=== PATIENT | male | born 1955 | race Hispanic/Latino ===

== ENCOUNTER 2017-04-17 08:17 | Inpatient (IN) | payer OTHER ==
[2017-04-17 08:18] VITALS: BMI 22.0
[2017-04-17] MEDS ORDERED: Sodium Chloride 0.9% 500 ML IV ONE ×2 (08:43→11:31)
[2017-04-17 09:02] LABS: BASO % 0.6 % (0.0-2.0); EOS # 0.1 K/uL (0.0-0.7); EOS % 2.1 % (0.0-4.0); HEMATOCRIT 41.2 % (35.0-51.0); LYMPH # 1.1 K/uL (1.0-4.3); LYMPH % 20.6 % (20.0-40.0); MEAN CELL VOLUME 90.5 fL (80.0-94.0); MEAN CORPUSCULAR HEMOGLOBIN 30.3 pg (27.0-31.0); MEAN CORPUSCULAR HGB CONC 33.4 g/dL (33.0-37.0); MEAN PLATELET VOLUME 9.1 fL (7.2-11.7); MONO # 0.5 K/uL (0.0-0.8); MONO % 9.9 % (0.0-10.0); RED CELL DISTRIBUTION WIDTH 13.5 % (11.5-14.5); WHITE BLOOD COUNT 5.5 K/uL (4.8-10.8)
[2017-04-17 09:13] LABS: ALKALINE PHOSPHATASE 53 U/L (38-126); ALT/SGPT 49 U/L (21-72); AST/SGOT 37 U/L (17-59); BILIRUBIN,TOTAL 1.6 mg/dL (0.2-1.3); BLOOD UREA NITROGEN 12 mg/dL (9-20); CALCIUM 8.3 mg/dl (8.6-10.4); CARBON DIOXIDE 31 mmol/L (22-30); CHLORIDE 105 mmol/L (98-107); GFR AFRICAN-AMERICAN > 60; GLUCOSE,RANDOM 111 mg/dL (75-110); POTASSIUM 4.1 mmol/L (3.6-5.2); SODIUM 139 mmol/L (132-148)
[2017-04-17 09:16] LABS: ALB/GLOB RATIO 1.6 (1.0-2.1)
--- NOTE | 2017-04-17 10:02 | C.PDOC ---
History Of Present Illness 62 year old male, with PMHx of HTN, MO in 2014 with 2 stents placed, presents to ED for evaluation after a syncopal episode today. Pt states that he was getting his stress test and echocardiogram done today as per Dr. Alfredo, when he passed out after an IV line was placed. Pt states that he felt slightly dizzy before the syncopal episode but feels better now. Pt is asymptomatic at this time. Notes that he took his Aspirin today. No chest pain, shortness of breath, or dizziness. Time Seen by Provider: 04/17/17 08:28 Chief Complaint (Nursing): Syncope History Per: Patient History/Exam Limitations: no limitations Current Symptoms Are (Timing): Still Present Recent travel outside of the [place]: No Additional History Per: Patient Past Medical History Reviewed: Historical Data, Nursing Documentation, Vital Signs Vital Signs: Last Vital Signs Temp 97.8 F 04/17/17 08:17 Pulse 58 L 04/17/17 08:17 Resp 18 04/17/17 08:17 BP 93/63 L 04/17/17 08:17 Pulse Ox 95 04/17/17 10:07 - Medical History PMH: HTN, Hypercholesterolemia Denies: Chronic Kidney Disease Family History: States: Unknown Family Hx - Social History Hx Alcohol Use: No Hx Substance Use: No - Immunization History Hx Tetanus Toxoid Vaccination: No Hx Influenza Vaccination: No Hx Pneumococcal Vaccination: No Review Of Systems Except As Marked, All Systems Reviewed And Found Negative. Constitutional: Negative for: Fever, Chills Cardiovascular: Negative for: Chest Pain, Palpitations Respiratory: Negative for: Cough, Shortness of Breath Gastrointestinal: Negative for: Nausea, Vomiting, Abdominal Pain Neurological: Negative for: Weakness, Numbness, Headache, Dizziness Physical Exam - Physical Exam Appears: Non-toxic, No Acute Distress, Other (anxious) Skin: Normal Color, Warm, Dry Head: Atraumatic, Normacephalic Eye(s): bilateral: Normal Inspection Oral Mucosa: Moist Chest: Symmetrical Cardiovascular: Rhythm Regular, No Murmur, Other (hypotensive) Respiratory: Normal Breath Sounds, No Rales, No Rhonchi, No Wheezing Gastrointestinal/Abdominal: Soft, No Tenderness Extremity: Normal ROM Neurological/Psych: Oriented x3, Normal Speech ED Course And Treatment - Laboratory Results Result Diagrams: 04/17/17 08:57 04/17/17 08:57 O2 Sat by Pulse Oximetry: 95 Pulse Ox Interpretation: Normal Medical Decision Making Medical Decision Making: Blood work, EKG ordered and reviewed. Pt was given IV fluids. Case discussed with Dr. Alfredo Case discussed with Dr. Asencio Disposition - Disposition Forms: [facility] (Samoan) - Scribe Statement The provider has reviewed the documentation as recorded by the Scribe Wendie Haywood All medical record entries made by the Scribe were at my direction and personally dictated by me. I have reviewed the chart and agree that the record accurately reflects my personal performance of the history, physical exam, medical decision making, and the department course for this patient. I have also personally directed, reviewed, and agree with the discharge instructions and disposition.
--- NOTE | 2017-04-17 10:04 | C.PDOC ---
Time Seen by Provider: 04/17/17 08:28 Chief Complaint (Nursing): Syncope Past Medical History Vital Signs: Last Vital Signs Temp 97.8 F 04/17/17 08:17 Pulse 58 L 04/17/17 08:17 Resp 18 04/17/17 08:17 BP 93/63 L 04/17/17 08:17 Pulse Ox 95 04/17/17 08:17 - Medical History PMH: HTN, Hypercholesterolemia Denies: Chronic Kidney Disease Family History: States: Unknown Family Hx - Social History Hx Alcohol Use: No Hx Substance Use: No - Immunization History Hx Tetanus Toxoid Vaccination: No Hx Influenza Vaccination: No Hx Pneumococcal Vaccination: No ED Course And Treatment - Laboratory Results Result Diagrams: 04/17/17 08:57 04/17/17 08:57 O2 Sat by Pulse Oximetry: 95 Disposition - Disposition
--- NOTE | 2017-04-17 10:08 | C.PDOC ---
Time Seen by Provider: 04/17/17 08:28 Chief Complaint (Nursing): Syncope Past Medical History Vital Signs: Last Vital Signs Temp 97.8 F 04/17/17 08:17 Pulse 58 L 04/17/17 08:17 Resp 18 04/17/17 08:17 BP 93/63 L 04/17/17 08:17 Pulse Ox 95 04/17/17 10:04 - Medical History PMH: HTN, Hypercholesterolemia Denies: Chronic Kidney Disease Family History: States: Unknown Family Hx - Social History Hx Alcohol Use: No Hx Substance Use: No - Immunization History Hx Tetanus Toxoid Vaccination: No Hx Influenza Vaccination: No Hx Pneumococcal Vaccination: No ED Course And Treatment - Laboratory Results Result Diagrams: 04/17/17 08:57 04/17/17 08:57 O2 Sat by Pulse Oximetry: 95 Disposition Discussed With : Suri Asencio - Disposition Disposition: HOSPITALIZED Disposition Time: 10:00 Condition: STABLE Forms: [facility] (Burmese) - Clinical Impression Clinical Impression: Syncope and collapse
--- NOTE | 2017-04-17 21:13 | CP.PCM.HP ---
History of Present Illness - History of Present Illness History of Present Illness: Chief complaint: Syncope History of present illness: 62-year-old male with a history of high cholesterol, CAD, status post multiple stenting and aspirin, beta cain and antiplatelets was taken to the emergency room from the same day cardiac catheterization lab. Patient was getting the echocardiogram, and possibly stress test, while he was receiving the IV access patient suddenly become sweating, and also started having dizziness. He was nearly passed out, the rapid response was called and taken to the emergency room. In the emergency room patient improved markedly. He become more awake and responding. Vital signs at the time is stable. Past medical history: High cholesterol, CAD, status post a stent. Allergy: Allergic to penicillin Surgical history: Patient had a cardiac stent, following a cardiac arrest in 2014. Family history: Father at age of 49 with a liver cancer. Mother at age of 69 had heart disease. Social history: Nonsmoker, drinks coffee, denies any alcohol Review of system: Currently having no headache or visual symptoms no chest pain or shortness of breath Episode of dizziness Vital signs reviewed No neck vein distention noted Chest good air entry bilaterally, no wheezing or rales noted CVS regular heart sound, no murmur noted Abdomen soft, nontender. Extremities no pedal edema ORACLE DBA alert awake oriented -3, no functional neurological deficit Patient's labs reviewed EKG is nonspecific. Assessment and recommendation: 62-year-old male with history of high cholesterol and CAD now admitted with acute dizziness. Acute syncopal attack, likely vasovagal neuropathy cant be ruled out. Cardiology evaluation, neurology evaluation. Arrhythmias cannot be ruled out. Procedure monitor the patient and will follow the patient Present on Admission - Present on Admission Any Indicators Present on Admission: No History of DVT/PE: No History of Uncontrolled Diabetes: No Urinary Catheter: No Decubitus Ulcer Present: No Past Patient History - Infectious Disease Hx of Infectious Diseases: None - Past Medical History & Family History Past Medical History?: Yes - Past Social History Smoking Status: Never Smoked - CARDIAC Hx Cardiac Disorders: Yes Hx Heart Attack: Yes (2014) Hx Hypercholesterolemia: Yes Hx Hypertension: Yes - PULMONARY Hx Respiratory Disorders: No - NEUROLOGICAL Hx Neurological Disorder: Yes Hx Syncope: Yes Hx Vertigo: Yes - HEENT Hx HEENT Problems: Yes Other/Comment: wear glasses for blurred vision - RENAL Hx Chronic Kidney Disease: No - ENDOCRINE/METABOLIC Hx Endocrine Disorders: Yes Other/Comment: HYPOGLYCEMIA - HEMATOLOGICAL/ONCOLOGICAL Hx Blood Disorders: No - INTEGUMENTARY Hx Dermatological Problems: No - MUSCULOSKELETAL/RHEUMATOLOGICAL Hx Falls: No - GASTROINTESTINAL Hx Gastrointestinal Disorders: No - GENITOURINARY/GYNECOLOGICAL Hx Genitourinary Disorders: Yes Hx Prostate Problems: Yes - PSYCHIATRIC Hx Substance Use: No - SURGICAL HISTORY Hx Surgeries: Yes Hx Cardiac Catheterization: Yes ([id number] 2014) - ANESTHESIA Hx Anesthesia: Yes Hx Anesthesia Reactions: No Meds Allergies/Adverse Reactions: Allergies Allergy/AdvReac Type Severity Reaction Status Date / Time Penicillins Allergy Mild RASH Verified 05/01/16 10:46 Results - Vital Signs Recent Vital Signs: Last Vital Signs Temp 98.7 F 04/17/17 17:18 Pulse 67 04/17/17 18:47 Resp 19 04/17/17 17:18 BP 132/87 04/17/17 18:47 Pulse Ox 98 04/17/17 17:18 - Labs Result Diagrams: 04/20/17 06:25 04/20/17 06:25 Labs: Laboratory Results - last 24 hr 04/17/17 04/17/17 04/17/17 08:39 08:57 08:57 WBC 5.5 RBC 4.56 Hgb 13.8 Hct 41.2 MCV 90.5 MCH 30.3 MCHC 33.4 RDW 13.5 Plt Count 158 MPV 9.1 Neut % (Auto) 66.8 Lymph % (Auto) 20.6 Mason % (Auto) 9.9 Eos % (Auto) 2.1 Baso % (Auto) 0.6 Neut # 3.7 Lymph # 1.1 Mason # 0.5 Eos # 0.1 Baso # 0.0 Sodium 139 Potassium 4.1 Chloride 105 Carbon Dioxide 31 H Anion Gap 8 L BUN 12 Creatinine 1.0 Est GFR ( Amer) > 60 Est GFR (Non-Af Amer) > 60 POC Glucose (mg/dL) 121 H Random Glucose 111 H Calcium 8.3 L Total Bilirubin 1.6 H AST 37 ALT 49 Alkaline Phosphatase 53 Troponin I 0.0150 Total Protein 6.0 L Albumin 3.7 Globulin 2.3 Albumin/Globulin Ratio 1.6 04/17/17 17:07 WBC RBC Hgb Hct MCV MCH MCHC RDW Plt Count MPV Neut % (Auto) Lymph % (Auto) Mason % (Auto) Eos % (Auto) Baso % (Auto) Neut # Lymph # Mason # Eos # Baso # Sodium Potassium Chloride Carbon Dioxide Anion Gap BUN Creatinine Est GFR ( Amer) Est GFR (Non-Af Amer) POC Glucose (mg/dL) 75 Random Glucose Calcium Total Bilirubin AST ALT Alkaline Phosphatase Troponin I Total Protein Albumin Globulin Albumin/Globulin Ratio
[2017-04-18 07:26] LABS: BASO # 0.1 K/uL (0.0-0.2); BASO % 0.9 % (0.0-2.0); EOS # 0.1 K/uL (0.0-0.7); HEMATOCRIT 42.9 % (35.0-51.0); LYMPH # 1.4 K/uL (1.0-4.3); MEAN CORPUSCULAR HEMOGLOBIN 30.2 pg (27.0-31.0); MEAN CORPUSCULAR HGB CONC 33.6 g/dL (33.0-37.0); MEAN PLATELET VOLUME 8.8 fL (7.2-11.7); MONO # 0.6 K/uL (0.0-0.8); MONO % 9.4 % (0.0-10.0); NRBC % 0.1 % (0.0-2.0); RED CELL DISTRIBUTION WIDTH 13.8 % (11.5-14.5); WHITE BLOOD COUNT 6.1 K/uL (4.8-10.8)
[2017-04-18 08:10] LABS: ALKALINE PHOSPHATASE 58 U/L (38-126); ALT/SGPT 48 U/L (21-72); AST/SGOT 32 U/L (17-59); BILIRUBIN,TOTAL 1.5 mg/dL (0.2-1.3); BLOOD UREA NITROGEN 13 mg/dL (9-20); CALCIUM 8.7 mg/dl (8.6-10.4); CARBON DIOXIDE 29 mmol/L (22-30); CHLORIDE 107 mmol/L (98-107); GFR AFRICAN-AMERICAN > 60; GLUCOSE,RANDOM 95 mg/dL (75-110); MAGNESIUM 1.8 mg/dL (1.6-2.3); POTASSIUM 4.1 mmol/L (3.6-5.2); SODIUM 141 mmol/L (132-148)
[2017-04-18 08:14] LABS: ALB/GLOB RATIO 1.6 (1.0-2.1)
--- NOTE | 2017-04-18 18:03 | CP.PCM.PN ---
Subjective - Date & Time of Evaluation Date of Evaluation: 04/18/17 Time of Evaluation: 18:03 - Subjective Subjective: no symptoms. Feeling better. Seen by neurologist. CAT scan of the brain is done Objective - Vital Signs/Intake and Output Vital Signs (last 24 hours): Temp Pulse Resp BP Pulse Ox 97.2 F L 54 L 20 143/90 100 04/18/17 17:18 04/18/17 17:18 04/18/17 17:18 04/18/17 17:18 04/18/17 17:18 Intake and Output: Vital signs reviewed No neck vein distention noted Chest good air entry bilaterally, no wheezing or rales noted CVS regular heart sound, no murmur noted Abdomen soft, nontender. 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 -3, no functional neurological deficit - Medications Medications: Current Medications Aspirin (Ecotrin) 81 mg PO DAILY [facility] Last Admin: 04/18/17 09:21 Dose: 81 mg Enalapril Maleate (Vasotec) 5 mg PO DAILY [facility] Last Admin: 04/18/17 09:22 Dose: 5 mg Metoprolol Tartrate (Lopressor) 25 mg PO BID [facility] Last Admin: 04/18/17 09:21 Dose: 25 mg Rosuvastatin Calcium (Crestor) 40 mg PO HS [facility] - Labs Labs: 04/18/17 07:12 04/18/17 07:12 Assessment and Plan (1) CAD (coronary artery disease), [place] coronary artery Status: Acute (2) Syncope and collapse Status: Acute (3) Palpitations Status: Acute
[2017-04-19] MEDS ORDERED: Influenza Vaccine 60 mcg/0.5 mL SYR (4YR UP) IM ONE (10:00)
--- NOTE | 2017-04-19 15:49 | CON ---
DATE: REFERRING PHYSICIAN: Dr. Asencio. REASON FOR CONSULTATION: Syncopal episode. HISTORY OF PRESENT ILLNESS: The patient is 62-year-old right-handed pleasant gentleman with past medical history of hypertension, CT in 2015, and several stents were placed, history of coronary artery disease, recurrent syncope. While the patient getting the stress test and had an IV inserted, before the IV, patient slightly felt dizzy and then after the IV, the dizziness increased and he lost his consciousness. The patient was in sitting position. The patient woke up in daze. No confusion, urine incontinence, tongue biting, or jerky movement is observed after the episode or during the episode. Patient stated that he had previous syncope a month ago and several months ago, he had a syncope and the first episode of syncope was nine years ago and at that time, he was found to have some cardiac irregularities nine years ago. Patient's first episode was associated with jerky movement and rolling eyes upwards. Patient denies any witnessed convulsions,urine incontinence, or tongue biting although patient is complaining of myoclonic jerks at night during sleep. The patient was seen by Dr. Begum one time nine years ago and the workup was negative. The patient has a loop, cannot go for a MRI. The patient does not recall if EEG was done recently but knows that in the past had one EEG. Never followed up by Dr. Begum in the office. PAST MEDICAL HISTORY: As mentioned above. SOCIAL HISTORY: No smoking, ethanol, or drug abuser. 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 ALLERGIES: ALLERGIC TO PENICILLIN. SURGICAL HISTORY: Multiple stents inserted. REVIEW OF SYSTEMS: As per H and P and ER notes reviewed. MEDICATIONS: Aspirin, metoprolol, enalapril, rosuvastatin. PHYSICAL EXAMINATION VITAL SIGNS: Blood pressure 93/63, pulse 58, respirations 18, temperature afebrile. MENTAL STATE: The patient is alert, awake, oriented x3. Normal naming, repetition, and comprehension. No agnosia. No apraxia. Slightly decreased attention span and short-term memory. Patient has difficulty spelling [place] backward although oriented x3. Normal naming and repetition. Calculation is intact. CRANIAL NERVES: Pupils 3 mm bilaterally, reactive. No facial asymmetry. No field defect. V1 to V3 intact. Tongue midline. Gag intact. Accessory nerve intact. MOTOR: Normal tone in the upper extremities. No pronator drift. No tremors, action, resting, or postural. No myoclonus. No fasciculation. Upper extremity, deltoid, elbow, and general accountant 5/5. Lower extremities, hip flexion, knee flexion and extension, ankle dorsiflexion, and plantar extension 5/5. No myoclonus, no cogwheel rigidity, no spasticity. Fine finger movement, finger tapping, alternative movement intact. Deep tendon reflexes 1 to 2 in upper and lower extremities. Plantar flexion on both sides. SENSORY: Pinprick, light touch, position intact. Coordination and [id number] intact. Romberg is deferred. IMPRESSION: Syncopal episode, most likely vasovagal and hypotension secondary to cerebral hypoperfusion and most likely the patient's blood pressure already on low side and the patient is on 20 hypertension medications. Neuro camacho, patient should have at least done an electroencephalogram and CAT scan of the brain. If it is not done, there is no documentation here or report in the chart that the patient had a CAT scan of the brain although the patient cannot have an MRI because of the loop. Patient's workup, neuro camacho, can be done as an outpatient. My feeling is the patient's syncope is most likely postural hypotension and cardiac etiology rather than neurological. I have advised the patient to follow up with Dr. Begum after discharge, probably may need video monitoring, electroencephalogram because of the patient's myoclonic jerks versus focal seizures during sleep. Thank you for the consultation and Dr. Begum will follow up the patient on Thursday. Fritz Bhandari MD
--- NOTE | 2017-04-19 21:11 | CP.PCM.CON ---
History of Present Illness - History of Present Illness History of Present Illness: 62 M with hx of STEMI s/p multi vessel PCI admitted for chest pain Recommend cardiac cath Past Patient History - Infectious Disease Hx of Infectious Diseases: None - Past Medical History & Family History Past Medical History?: Yes - Past Social History Smoking Status: Never Smoked - CARDIAC Hx Cardiac Disorders: Yes Hx Heart Attack: Yes (2014) Hx Hypercholesterolemia: Yes Hx Hypertension: Yes - PULMONARY Hx Respiratory Disorders: No - NEUROLOGICAL Hx Neurological Disorder: Yes Hx Syncope: Yes Hx Vertigo: Yes - HEENT Hx HEENT Problems: Yes Other/Comment: wear glasses for blurred vision - RENAL Hx Chronic Kidney Disease: No - ENDOCRINE/METABOLIC Hx Endocrine Disorders: Yes Other/Comment: HYPOGLYCEMIA - HEMATOLOGICAL/ONCOLOGICAL Hx Blood Disorders: No - INTEGUMENTARY Hx Dermatological Problems: No - MUSCULOSKELETAL/RHEUMATOLOGICAL Hx Falls: No - GASTROINTESTINAL Hx Gastrointestinal Disorders: No - GENITOURINARY/GYNECOLOGICAL Hx Genitourinary Disorders: Yes Hx Prostate Problems: Yes - PSYCHIATRIC Hx Substance Use: No - SURGICAL HISTORY Hx Surgeries: Yes Hx Cardiac Catheterization: Yes ([id number] 2014) - ANESTHESIA Hx Anesthesia: Yes Hx Anesthesia Reactions: No Meds Allergies/Adverse Reactions: Allergies Allergy/AdvReac Type Severity Reaction Status Date / Time Penicillins Allergy Mild RASH Verified 05/01/16 10:46 - Medications Medications: Current Medications Aspirin (Ecotrin) 81 mg PO DAILY [facility] Last Admin: 04/19/17 09:49 Dose: 81 mg Enalapril Maleate (Vasotec) 5 mg PO DAILY [facility] Last Admin: 04/19/17 09:49 Dose: 5 mg Metoprolol Tartrate (Lopressor) 25 mg PO BID [facility] Last Admin: 04/19/17 17:38 Dose: Not Given Rosuvastatin Calcium (Crestor) 40 mg PO HS [facility] Last Admin: 04/18/17 21:33 Dose: 40 mg Results - Vital Signs Recent Vital Signs: Last Vital Signs Temp 98.3 F 04/19/17 15:35 Pulse 65 04/19/17 15:35 Resp 20 04/19/17 15:35 BP 104/70 04/19/17 17:38 Pulse Ox 97 04/19/17 15:35 - Labs Result Diagrams: 04/18/17 07:12 04/18/17 07:12
--- NOTE | 2017-04-19 21:12 | CP.PCM.PN ---
Subjective - Date & Time of Evaluation Date of Evaluation: 04/19/17 Time of Evaluation: 12:00 - Subjective Subjective: Patient seen and evaluated denies chest pain and dyspnea For cath tomorrow Objective - Vital Signs/Intake and Output Vital Signs (last 24 hours): Temp Pulse Resp BP Pulse Ox 98.3 F 65 20 104/70 97 04/19/17 15:35 04/19/17 15:35 04/19/17 15:35 04/19/17 17:38 04/19/17 15:35 - Medications Medications: Current Medications Aspirin (Ecotrin) 81 mg PO DAILY [facility] Last Admin: 04/19/17 09:49 Dose: 81 mg Enalapril Maleate (Vasotec) 5 mg PO DAILY [facility] Last Admin: 04/19/17 09:49 Dose: 5 mg Metoprolol Tartrate (Lopressor) 25 mg PO BID [facility] Last Admin: 04/19/17 17:38 Dose: Not Given Rosuvastatin Calcium (Crestor) 40 mg PO HS [facility] Last Admin: 04/18/17 21:33 Dose: 40 mg - Labs Labs: 04/18/17 07:12 04/18/17 07:12
[2017-04-20 06:37] LABS: HEMATOCRIT 41.9 % (35.0-51.0); MEAN CELL VOLUME 88.5 fL (80.0-94.0); MEAN CORPUSCULAR HEMOGLOBIN 30.6 pg (27.0-31.0); MEAN CORPUSCULAR HGB CONC 34.6 g/dL (33.0-37.0); MEAN PLATELET VOLUME 8.8 fL (7.2-11.7); RED CELL DISTRIBUTION WIDTH 13.3 % (11.5-14.5); WHITE BLOOD COUNT 6.7 K/uL (4.8-10.8)
[2017-04-20 06:39] LABS: INR 1.1
[2017-04-20 06:52] LABS: BLOOD UREA NITROGEN 16 mg/dL (9-20); CALCIUM 8.5 mg/dl (8.6-10.4); CARBON DIOXIDE 28 mmol/L (22-30); CHLORIDE 106 mmol/L (98-107); GFR AFRICAN-AMERICAN > 60; GLUCOSE,RANDOM 95 mg/dL (75-110); SODIUM 140 mmol/L (132-148)
--- NOTE | 2017-04-20 12:55 | PN ---
DATE: NEUROLOGICAL PROBLEM: Recurrent syncopal attack, associated with some jerky movements as per the history. SUBJECTIVE: The patient was examined by Dr. Bhandari over the weekend for a similar problem. Workup is on progress. PHYSICAL EXAMINATION: VITAL SIGNS: Blood pressure 116/72, mean arterial pressure of 86, respiratory rate 16, temperature afebrile. NEUROLOGIC: The patient is more awake, alert, and oriented to person, place, and time. Mentation is normal. Speech is normal. Motor examination and sensory examination is normal. Plantars are downgoing. ASSESSMENT AND PLAN: The patient has been having loop recorder. The patient is not a candidate for MRI of the brain. However, the patient can be evaluated with electroencephalogram to see the electrical activities. Definitely, the patient is in need of an ambulatory video electroencephalogram and sleep studies, which can be done as outpatient for his underlying problem to be answered. In the meantime, I will continue the present management. The patient will be followed while he is in the hospital. Omid Begum MD
[2017-04-20] MEDS ORDERED: Iodixanol 320 MG/ML 100 ML BOTTLE IV ONE (16:07)
[2017-04-20] MEDS ORDERED: DiphenhydrAMINE 50 mg/ml Inj ONE (16:07)
[2017-04-20] MEDS ORDERED: Midazolam 2 MG/2 ML VIAL ONE (16:07)
--- NOTE | 2017-04-20 17:11 | CP.PCM.PN ---
Subjective - Date & Time of Evaluation Date of Evaluation: 04/20/17 Time of Evaluation: 17:00 - Subjective Subjective: Patient s/p cath Patent stents Non obstructive coronaries Check ECHO and carotids prior to discharge Objective - Vital Signs/Intake and Output Vital Signs (last 24 hours): Temp Pulse Resp BP Pulse Ox 97.9 F 66 18 109/70 99 04/20/17 08:03 04/20/17 12:08 04/20/17 08:03 04/20/17 10:15 04/20/17 08:03 Intake and Output: 04/20/17 04/20/17 06:59 18:59 Intake Total 200 100 Balance 200 100 - Medications Medications: Current Medications Aspirin (Ecotrin) 81 mg PO DAILY [facility] Last Admin: 04/20/17 10:20 Dose: 81 mg Enalapril Maleate (Vasotec) 5 mg PO DAILY [facility] Last Admin: 04/20/17 10:15 Dose: Not Given Metoprolol Tartrate (Lopressor) 25 mg PO BID [facility] Last Admin: 04/20/17 10:15 Dose: Not Given Rosuvastatin Calcium (Crestor) 40 mg PO HS [facility] Last Admin: 04/19/17 21:42 Dose: 40 mg - Labs Labs: 04/20/17 06:25 04/20/17 06:25 PT 12.1 SECONDS (9.7-12.2) 04/20/17 06:25 INR 1.1 04/20/17 06:25
--- NOTE | 2017-04-20 18:04 | CARD ---
APPROVED REPORT EKG Measurement Heart [id number] <Conclusion> Sinus bradycardia Otherwise normal ECG
--- NOTE | 2017-04-20 18:22 | CP.PCM.PN ---
Subjective - Date & Time of Evaluation Date of Evaluation: 04/19/17 Time of Evaluation: 18:22 - Subjective Subjective: patient is currently feeling better. He will be getting the angiogram tomorrow. After that he will be discharged Objective - Vital Signs/Intake and Output Vital Signs (last 24 hours): Temp Pulse Resp BP Pulse Ox 97.9 F 66 18 109/70 99 04/20/17 08:03 04/20/17 12:08 04/20/17 08:03 04/20/17 10:15 04/20/17 08:03 Intake and Output: 04/20/17 04/20/17 06:59 18:59 Intake Total 200 100 Balance 200 100 Vital signs reviewed No neck vein distention noted Chest good air entry bilaterally, no wheezing or rales noted CVS regular heart sound, no murmur noted Abdomen soft, nontender. 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 -3, no functional neurological deficit - Medications Medications: Current Medications Aspirin (Ecotrin) 81 mg PO DAILY [facility] Last Admin: 04/20/17 10:20 Dose: 81 mg Enalapril Maleate (Vasotec) 5 mg PO DAILY [facility] Last Admin: 04/20/17 10:15 Dose: Not Given Metoprolol Tartrate (Lopressor) 25 mg PO BID [facility] Last Admin: 04/20/17 10:15 Dose: Not Given Rosuvastatin Calcium (Crestor) 40 mg PO HS [facility] Last Admin: 04/19/17 21:42 Dose: 40 mg - Labs Labs: 04/20/17 06:25 04/20/17 06:25 PT 12.1 SECONDS (9.7-12.2) 04/20/17 06:25 INR 1.1 04/20/17 06:25 Assessment and Plan (1) CAD (coronary artery disease), [place] coronary artery Assessment & Plan: awaiting cardiac cath. Continue current medicine Neurology follow-up Status: Acute (2) Syncope and collapse Status: Acute (3) Palpitations Status: Acute
--- NOTE | 2017-04-20 18:24 | CP.PCM.PN ---
Subjective - Date & Time of Evaluation Date of Evaluation: 04/20/17 Time of Evaluation: 18:23 - Subjective Subjective: patient is feeling better. patient had angiogram, looks like normal coronaries at this time Objective - Vital Signs/Intake and Output Vital Signs (last 24 hours): Temp Pulse Resp BP Pulse Ox 97.9 F 66 18 109/70 99 04/20/17 08:03 04/20/17 12:08 04/20/17 08:03 04/20/17 10:15 04/20/17 08:03 Intake and Output: 04/20/17 04/20/17 06:59 18:59 Intake Total 200 100 Balance 200 100 Vital signs reviewed No neck vein distention noted Chest good air entry bilaterally, no wheezing or rales noted CVS regular heart sound, no murmur noted Abdomen soft, nontender. 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 oriented -3, no functional neurological deficit - Medications Medications: Current Medications Aspirin (Ecotrin) 81 mg PO DAILY [facility] Last Admin: 04/20/17 10:20 Dose: 81 mg Enalapril Maleate (Vasotec) 5 mg PO DAILY [facility] Last Admin: 04/20/17 10:15 Dose: Not Given Metoprolol Tartrate (Lopressor) 25 mg PO BID [facility] Last Admin: 04/20/17 10:15 Dose: Not Given Rosuvastatin Calcium (Crestor) 40 mg PO HS [facility] Last Admin: 04/19/17 21:42 Dose: 40 mg - Labs Labs: 04/20/17 06:25 04/20/17 06:25 PT 12.1 SECONDS (9.7-12.2) 04/20/17 06:25 INR 1.1 04/20/17 06:25 Assessment and Plan (1) CAD (coronary artery disease), [place] coronary artery Assessment & Plan: stable clinically. Possible discharge plan in the morning Status: Acute (2) Syncope and collapse Status: Acute (3) Palpitations Status: Acute
[2017-04-20 19:26] VITALS: RESP 20
--- NOTE | 2017-04-20 23:11 | CARD ---
APPROVED REPORT EKG Measurement Heart [id number] <Conclusion> Sinus bradycardia Otherwise normal ECG
[2017-04-21 07:15] LABS: MEAN CELL VOLUME 88.8 fL (80.0-94.0); MEAN CORPUSCULAR HGB CONC 33.8 g/dL (33.0-37.0); MEAN PLATELET VOLUME 9.8 fL (7.2-11.7); RED CELL DISTRIBUTION WIDTH 13.2 % (11.5-14.5); WHITE BLOOD COUNT 12.8 K/uL (4.8-10.8)
[2017-04-21 08:03] LABS: BLOOD UREA NITROGEN 16 mg/dL (9-20); CARBON DIOXIDE 28 mmol/L (22-30); CHLORIDE 104 mmol/L (98-107); GFR AFRICAN-AMERICAN > 60; GLUCOSE,RANDOM 111 mg/dL (75-110); POTASSIUM 4.1 mmol/L (3.6-5.2); SODIUM 140 mmol/L (132-148)
[2017-04-21] MEDS ORDERED: Iodixanol 320 mg/ml 150 ml Bottle IV ONE (12:07)
--- NOTE | 2017-04-21 13:50 | VASCLAB ---
PROCEDURE: HISTORY: Syncope COMPARISON: None available. TECHNIQUE: Grayscale and duplex Doppler evaluation of the cervical carotid and vertebral arteries were performed. The common carotid, carotid bifurcations and cervical Internal Carotid Artery (ICA) and proximal External Carotid Artery (ECA) were evaluated. The vertebral arteries were evaluated for gross patency and flow direction. Report prepared by THIAGO Gmóez FINDINGS: RIGHT CAROTID ARTERIES: 1. Common Carotid Artery: No significant focal plaque formation of the right common carotid artery. Maximum Peak Systolic velocity: 91 cm/sec: End-diastolic velocity 30 cm/sec. 2. Carotid Bifurcation: plaque formation. Maximum Peak Systolic velocity: 39 cm/sec: End-diastolic velocity 13 cm/sec. 3. Internal Carotid Artery: Plaque description: 3.1. Proximal Segment: Peak systolic velocity 39 cm/sec: End-diastolic velocity 21 cm/sec - % stenosis 0-15% 3.2. Middle Segment: Peak systolic velocity 52 cm/sec: End-diastolic velocity 25 cm/sec - % stenosis 0-15% 3.3. Distal Segment: Peak systolic velocity 35 cm/sec: End-diastolic velocity 15 cm/sec - % stenosis 0-15% 4. External Carotid Artery: No significant focal plaque formation. Peak systolic velocity 70 cm/sec 5. ICA/CCA Ratio: 0.7 LEFT CAROTID ARTERIES: 1. Common Carotid Artery: No significant focal plaque formation of the left common carotid artery. Maximum Peak Systolic velocity: 100 cm/sec: End-diastolic velocity 37 cm/sec. 2. Carotid Bifurcation: plaque formation. Maximum Peak Systolic velocity: 69 cm/sec: End-diastolic velocity 24 cm/sec. 3. Internal Carotid Artery: Plaque description: 3.1. Proximal Segment: Peak systolic velocity 73 cm/sec: End-diastolic velocity 31 cm/sec - % stenosis 0-15% 3.2. Middle Segment: Peak systolic velocity 53 cm/sec: End-diastolic velocity 26 cm/sec - % stenosis 0-15% 3.3. Distal Segment: Peak systolic velocity 60 cm/sec: End-diastolic velocity 29 cm/sec - % stenosis 0-15% 4. External Carotid Artery: No significant focal plaque formation. Peak systolic velocity 97 cm/sec 5. ICA/CCA Ratio: 1.1 VERTEBRAL ARTERIES: 1. Right Vertebral Artery: The right vertebral artery flow direction is antegrade. 2. Left Vertebral Artery: The left vertebral artery flow direction is antegrade. OTHER FINDINGS: 1. Right Brachial Blood pressure: 110 mmHg. 2. Left Brachial Blood pressure: 120 mmHg. IMPRESSION: RIGHT: Duplex scan does not suggest hemodynamically significant stenosis of the right extracranial carotid arteries. LEFT: Duplex scan does not suggest hemodynamically significant stenosis of the left extracranial carotid arteries.
[2017-04-21] MEDS ORDERED: DiphenhydrAMINE 50 mg/ml Inj IVP PRN (13:55)
[2017-04-21] MEDS ORDERED: MethylPREDNISolone 40 mg Vial IVP SCH (14:00)
--- NOTE | 2017-04-21 14:02 | CP.PCM.PN ---
Subjective - Date & Time of Evaluation Date of Evaluation: 04/21/17 Time of Evaluation: 13:59 - Subjective Subjective: NOTIFIED BY PRIMARY RN FLORECITA THAT DR. GOYAL WOULD LIKE A CTA TODAY, HOWEVER, PT NOW STATES HE IS ALLERGIC TO CT SCAN IV CONTRAST. BEET TOPPER CLARIFIED WITH DR. GOYAL AND PT IS STILL TO HAVE TEST DONE HE IS RULING OUT DISSECTION. DR. CRISTOBAL MADE AWARE OF THIS AND OK TO ORDER TO PRE-MEDICATION MEDS PER THE HOSPITAL POLICY. SEE THE HOSPITAL SPECIFIC RECOMMENDED PRE-MEDICATION REGIMEN POLICY. SOLUMEDROL AND BENADRYL ORDERED PER POLICY RECOMMENDATION. NO FURTHER ORDERS. FURTHER RN CONCERNS REGARDING EXAM TO BE DISCUSSED BY INSPECTOR METAL FABRICATING AND ORDERING PROVIDER. Objective - Vital Signs/Intake and Output Vital Signs (last 24 hours): Temp Pulse Resp BP Pulse Ox 97.6 F 77 20 144/97 H 97 04/21/17 08:34 04/21/17 13:06 04/21/17 10:31 04/21/17 10:30 04/21/17 10:31 Intake and Output: 04/21/17 04/21/17 06:59 18:59 Intake Total 200 Balance 200 - Medications Medications: Current Medications Aspirin (Ecotrin) 81 mg PO DAILY [facility] Last Admin: 04/21/17 10:30 Dose: 81 mg Diphenhydramine HCl (Benadryl) 50 mg IVP ONCE PRN PRN Reason: PRE-MEDICATE 1 HOUR BEFORE CTA Enalapril Maleate (Vasotec) 5 mg PO DAILY [facility] Last Admin: 04/21/17 10:30 Dose: 5 mg Methylprednisolone (Solu-Medrol) 40 mg IVP ONCE AMY Metoprolol Tartrate (Lopressor) 25 mg PO BID [facility] Last Admin: 04/21/17 10:30 Dose: 25 mg Rosuvastatin Calcium (Crestor) 40 mg PO HS [facility] Last Admin: 04/20/17 21:58 Dose: 40 mg - Labs Labs: 04/21/17 07:05 04/21/17 07:05 PT 12.1 SECONDS (9.7-12.2) 04/20/17 06:25 INR 1.1 04/20/17 06:25
[2017-04-21 16:02] VITALS: TEMP 98.1; O2SAT 99
--- NOTE | 2017-04-21 16:33 | CT ---
CTA chest, abdomen, pelvis Indication: Thoracic aortic aneurysm Comparison: None available Technique: Contrast dose: 100 mL Visipaque IV Total exam DLP: 428.51 Axial computed tomographic angiogram images of the abdomen and pelvis were performed after bolus administration of nonionic intravenous contrast. Multiplanar, 3D (maximum intensity projection) reconstructions of the aorta were created in the coronal and sagittal planes by the radiographer technologist. This CT exam was performed using 1 or more of the falling dose reduction techniques: Automated exposure control, adjustment of the MAA and/or kV according to patient size, and/or use of iterative reconstruction technique. Findings: Visualized portions of the inferior thyroid gland appear unremarkable. The mediastinal and hilar vascular structures appear within normal limits. The heart appears within normal limits of size. Dense coronary artery calcifications. No focal consolidation. No pleural effusion. No pneumothorax. No suspicious pulmonary nodules measuring greater than 5 mm. Infrarenal abdominal aorta measures approximately 2.5 x 2.4 x 4.0 cm (transverse x AP x CC) and contains plaque. Atherosclerotic calcifications. There is normal course and contour of the abdominal aorta and common iliac arteries. The celiac artery origin is widely patent. The superior mesenteric artery origin is widely patent. The inferior mesenteric artery origin is patent. Bilateral renal arteries, both widely patent. The liver appears within normal limits of size and morphology. The pancreas, spleen, adrenal glands, and gallbladder appear unremarkable. The kidneys enhance symmetrically without evidence of hydronephrosis or obstructing renal calculi. Too small to characterize bilateral renal hypodensities; statistically likely cysts. No enlarged abdominal lymphadenopathy is identified. Lack of oral contrast limits evaluation for bowel pathology. Visualized bowel loops appear within normal limits of caliber without evidence of obstruction. Moderate constipation. The appendix appears within normal limits of caliber. No inflammatory changes are seen in the right lower quadrant to suggest acute appendicitis. No definite free air. The urinary bladder appears unremarkable. The prostate measures approximately 3.5 x 4.6 cm. No significant pelvic free fluid is identified. Mild degenerative changes. Scattered sclerotic foci in the pelvis, likely bone islands. Calcification or radiopaque device within left subcutaneous soft tissues of the upper chest. Impression: Infrarenal abdominal aorta appears mildly dilated and measures approximately 2.5 x 2.4 x 4.0 cm, containing plaque. Atherosclerotic calcifications. Too small to characterize bilateral renal hypodensities; statistically likely cysts. Moderate constipation. Calcification or radiopaque device within left subcutaneous soft tissues of the upper chest. Additional findings as above.
[2017-04-21 17:19] VITALS: PULSE 61
[2017-04-21 18:16] VITALS: BP 114/77
--- NOTE | 2017-04-21 20:57 | CARD ---
APPROVED REPORT EXAM: Two-dimensional and M-mode echocardiogram with Doppler and color Doppler. Other Information Quality : GoodRhythm : INDICATION Cardiac Disease: CAD Syncope Palpitations RISK FACTORS Hyperlipidemia 2D DIMENSIONS IVSd0.8 (0.7-1.1cm)LVDd4.6 (3.9-5.9cm) PWd0.9 (0.7-1.1cm)LVDs2.9 (2.5-4.0cm) FS (%) 36.3 %LVEF (%)66.1 (>50%) M-Mode DIMENSIONS Left Atrium (MM)2.34 (2.5-4.0cm)Aortic Root4.48 (2.2-3.7cm) Aortic Cusp Exc.2.32 (1.5-2.0cm) Mitral Valve MV E Utonfbdr44.5cm/sMV A Auusrdtr75.4cm/sE/A ratio0.6 TDI E/Lateral E'0.0E/Medial E'0.0 Tricuspid Valve TR Peak Ffqwvnzn990wt/sTR Peak Gr.12kfLaMFGP65tbDz LEFT VENTRICLE The left ventricle is normal size. There is normal left ventricular wall thickness. The left ventricular function is normal. The left ventricular ejection fraction is within the normal range. There is normal LV segmental wall motion. Transmitral Doppler flow pattern is Grade I-abnormal relaxation pattern. No left ventricle thrombus noted on this study. RIGHT VENTRICLE The right ventricle is normal size. There is normal right ventricular wall thickness. The right ventricular systolic function is normal. ATRIA The left atrium size is normal. The right atrium size is normal. AORTIC VALVE The aortic valve is thickened but opens well. There is no aortic valvular stenosis. MITRAL VALVE The mitral valve is mildly thickened. There is no mitral valve stenosis. There is no mitral valve regurgitation noted. TRICUSPID VALVE There is mild pulmonary hypertension. GREAT VESSELS The aortic root is moderately enlarged. The IVC is normal in size and collapses >50% with inspiration. <Conclusion> The left ventricle is normal size. There is normal left ventricular wall thickness. The left ventricular function is normal. The left ventricular ejection fraction is within the normal range. There is normal LV segmental wall motion. Transmitral Doppler flow pattern is Grade I-abnormal relaxation pattern. There is mild pulmonary hypertension. The aortic root is moderately enlarged.
--- NOTE | 2017-04-22 13:51 | EEG ---
DATE: 04/20/2017 This is a 16-channel electroencephalogram of an awake and drowsy adult. During the study, photic stimulation was performed. Hyperventilation was not performed. The resting electroencephalogram is well organized and consists of 40 to 50 microvolt alpha activity seen at parietal and occipital leads. Anteriorly, fast activity superimposed with 2 to 3 Hz delta activities seen. Intermittent movement artifact contaminated with background rhythm. The photic stimulation did not evoke driving response noted at 2 to 20 Hz. IMPRESSION: This is a normal electroencephalogram of an awake and drowsy adult. During the study, neither electroencephalographic paroxysmal activities nor focal slowing noted. Omid Begum MD
== END 2017-04-21 21:18 | disposition home or self-care (01) | DRG 312 ==
LOC: C.ER 08:17 → C.9E 09:40 → C.6T 15:56 → OBSVTOIN 04-20 15:13
PROVIDERS: ADMIT Internal Medicine; ATTEND Internal Medicine
DX: R55 Syncope and collapse (principal); G25.3 Myoclonus; R56.9 Unspecified convulsions; E16.2 Hypoglycemia, unspecified; E78.00 Pure hypercholesterolemia, unspecified; R00.2 Palpitations; I10 Essential (primary) hypertension; I25.10 Atherosclerotic heart disease of native coronary artery without angina pectoris; I25.2 Old myocardial infarction; Z79.82 Long term (current) use of aspirin; Z95.5 Presence of coronary angioplasty implant and graft; Z88.0 Allergy status to penicillin

== ENCOUNTER 2017-10-15 17:25 | Observation (INO) | payer OTHER ==
[2017-10-15 18:01] VITALS: BMI 24.3
[2017-10-15] MEDS ORDERED: Aspirin 325 mg EC Tablets PO STA (19:33)
--- NOTE | 2017-10-15 19:33 | C.PDOC ---
History Of Present Illness Patient is a 62 y/o male who presents to the ED with a complaint of intermittent SOB since earlier today. Patient was seen in ED this morning and got an Echo done, but states he was told "he needed an Echo with contrast". Patient was set up with an appointment for later today but missed it, prompting ED visit. Denies chest pain or palpitations; patient is speaking in complete sentences. Time Seen by Provider: 10/15/17 19:32 Chief Complaint (Nursing): Shortness Of Breath History Per: Patient History/Exam Limitations: no limitations Onset/Duration Of Symptoms: Hrs, Intermittent Episodes Current Symptoms Are (Timing): Still Present Current Respiratory Medications: See Home Med List Associated Symptoms: denies: Fever, Chills Reports Recently: Seen In ED (this morning) Recent travel outside of the [place] States: No Past Medical History Reviewed: Historical Data, Nursing Documentation, Vital Signs Vital Signs: Last Vital Signs Temp 98.6 F 10/15/17 18:02 Pulse 60 10/15/17 21:34 Resp 13 10/15/17 21:34 BP 150/91 H 10/15/17 21:34 Pulse Ox 100 10/15/17 21:34 - Medical History PMH: HTN, Hypercholesterolemia Denies: Chronic Kidney Disease Surgical History: No Surg Hx - [facility] Procedures FLUOROSCOPY OF LEFT HEART USING OTHER CONTRAST (04/20/17) FLUOROSCOPY OF MULTIPLE CORONARY ARTERIES USING OTH CONTRAST (04/20/17) MEASURE OF CARDIAC SAMPL & PRESSURE, L HEART, PERC APPROACH (04/20/17) Family History: States: No Known Family Hx - Social History Hx Tobacco Use: No Hx Alcohol Use: No Hx Substance Use: No - Immunization History Hx Tetanus Toxoid Vaccination: No Hx Influenza Vaccination: No Hx Pneumococcal Vaccination: No Review Of Systems Constitutional: Negative for: Fever, Chills Cardiovascular: Negative for: Chest Pain, Palpitations Respiratory: Positive for: Shortness of Breath Physical Exam - Physical Exam Appears: Non-toxic, No Acute Distress Skin: Warm, Dry Head: Normacephalic Eye(s): bilateral: Normal Inspection Oral Mucosa: Moist Chest: Symmetrical Cardiovascular: Rhythm Regular, No Murmur Respiratory: No Decreased Breath Sounds, No Rales, No Rhonchi, No Wheezing, Other (speaking in complete sentences) Gastrointestinal/Abdominal: Soft, No Tenderness Extremity: Normal ROM (x4) Neurological/Psych: Oriented x3, Other (no focal deficits) ED Course And Treatment - Laboratory Results Result Diagrams: 10/15/17 20:11 10/15/17 20:11 O2 Sat by Pulse Oximetry: 99 Progress Note: Blood work, CT angio, CXR, and UA ordered. Ecotrin administered. Disposition Discussed With : Suri Asencio Comment: accepted the pt on his service and took over the care at 9:15 PM Doctor Will See Patient In The: Hospital Counseled Patient/Family Regarding: Studies Performed, Diagnosis - Disposition Disposition: HOSPITALIZED Disposition Time: 19:33 Condition: FAIR - Clinical Impression Clinical Impression: Dyspnea, Palpitations, Chest pain - Scribe Statement The provider has reviewed the documentation as recorded by the Scribe Lisette Johnston All medical record entries made by the Scribe were at my direction and personally dictated by me. I have reviewed the chart and agree that the record accurately reflects my personal performance of the history, physical exam, medical decision making, and the department course for this patient. I have also personally directed, reviewed, and agree with the discharge instructions and disposition. Decision To Admit - Pt Status Changed To: Hospital Disposition Of: Observation - . Bed Request Type: Telemetry Admitting Physician: Suri Asencio Patient Diagnosis: Dyspnea, Palpitations, Chest pain
[2017-10-15] MEDS ORDERED: Iodixanol 320 MG/ML 100 ML BOTTLE IV ONE (19:45)
[2017-10-15] MEDS ORDERED: Aspirin 325 mg EC Tablets PO ONE (19:58)
[2017-10-15 20:15] LABS: BASO % 0.6 % (0.0-2.0); EOS % 0.5 % (0.0-4.0); LYMPH # 1.2 K/uL (1.0-4.3); LYMPH % 15.4 % (20.0-40.0); MEAN CORPUSCULAR HGB CONC 34.4 g/dL (33.0-37.0); MEAN PLATELET VOLUME 8.8 fL (7.2-11.7); MONO # 0.5 K/uL (0.0-0.8); MONO % 6.6 % (0.0-10.0); NEUT % 76.9 % (50.0-75.0); NRBC % 0.1 % (0.0-2.0); RBC 4.84 Mil/uL (4.40-5.90); RED CELL DISTRIBUTION WIDTH 13.5 % (11.5-14.5); WHITE BLOOD COUNT 7.8 K/uL (4.8-10.8)
[2017-10-15 20:24] LABS: INR 1.1
[2017-10-15 20:28] LABS: ABG ALLEN TEST POS; ARTERIAL BLOOD GAS HCO3 26.5 mmol/L (21-28); ARTERIAL BLOOD GAS O2 SAT 101.3 % (95-98); ARTERIAL BLOOD GAS PCO2 44 mm/Hg (35-45); ARTERIAL BLOOD GAS PO2 87 mm/Hg (80-100); ARTERIAL BLOOD GAS TCO2 28.7 mmol/L (22-28)
[2017-10-15 20:32] LABS: ALB/GLOB RATIO 1.4 (1.0-2.1); ALBUMIN 4.2 g/dL (3.5-5.0); ALT/SGPT 39 U/L (21-72); AST/SGOT 36 U/L (17-59); BLOOD UREA NITROGEN 17 mg/dL (9-20); CALCIUM 9.6 mg/dl (8.6-10.4); GFR AFRICAN-AMERICAN > 60; GFR NON-AFRICAN AMERICAN > 60
[2017-10-15 20:39] LABS: B-TYPE NATRIURETIC PEPTIDE 118 pg/mL (0-900)
[2017-10-15] MEDS ORDERED: DiphenhydrAMINE 50 mg/ml Inj IVP STA (21:13)
[2017-10-15] MEDS ORDERED: DiphenhydrAMINE 50 mg/ml Inj ONE (21:17)
--- NOTE | 2017-10-15 22:22 | CT ---
EXAM: CT Angiography Chest With Intravenous Contrast EXAM DATE/TIME: 10/15/2017 7:33 PM CLINICAL HISTORY: 62 years old, male; Signs and symptoms; Shortness of breath; Additional info: SOB TECHNIQUE: Axial computed tomographic angiography images of the chest with intravenous contrast using pulmonary embolism protocol. All CT scans at this facility use one or more dose reduction techniques, viz.: automated exposure control; ma/kV adjustment per patient size (including targeted exams where dose is matched to indication; i.e. head); or iterative reconstruction technique. MIP reconstructed images were created and reviewed. Coronal and sagittal reformatted images were created and reviewed. CONTRAST: 100 mL of visipaque 320 administered intravenously. COMPARISON: There are no prior studies for comparison. FINDINGS: Heart, aorta and Pulmonary arteries: Motion heart size is normal. There are coronary artery calcifications and/or stents.There is trace fluid in pericardial recesses. Aorta is normal in caliber. Calcifications in the aorta and great vessels.There are no pulmonary emboli. Lungs and pleural spaces: Trachea and main bronchi are patent. There is apical scarring bilaterally. There is no pneumothorax. There is dependent atelectasis bilaterally. There is no focal consolidation. There are no effusions. Mediastinum: There are no pathologically enlarged mediastinal or hilar nodes. Esophagus is unremarkable. Thyroid: Thyroid is not optimally demonstrated. Bones/joints: There are no acute osseous abnormalities. Soft tissues: unremarkable Upper abdomen: There are no acute abnormalities in the visualized portion of the abdomen. Gallbladder is partially distended with multiple stones. There are nonobstructing left renal stones. IMPRESSION: No aortic aneurysm or pulmonary embolus; coronary artery calcifications; no focal pneumonia; gallstones Additional nonemergent findings as described above.
--- NOTE | 2017-10-15 22:31 | CP.PCM.HP ---
History of Present Illness - History of Present Illness History of Present Illness: CC: Shortness of breath History of present illness: 62-year-old male with a history of high cholesterol, CAD, status post multiple stenting and aspirin, beta cain and antiplatelets was taken to the emergency room As the patient was having increasing shortness of breath. Earlier today patient underwent echocardiogram. In the echo there was some concern about intra-or ventricular thrombus. I called the patient. And I advised the patient to have a repeat echocardiogram with contrast study. But the patient started having increasing anxiety symptoms, and also started having shortness of breath, came to the emergency room. At the time patient underwent extensive workup in the ER. In further management as an inpatient. Past medical history: High cholesterol, CAD, status post a stent. Allergy: Allergic to penicillin Surgical history: Patient had a cardiac stent, following a cardiac arrest in 2014. Family history: Father at age of 49 with a liver cancer. Mother at age of 69 had heart disease. Social history: Nonsmoker, drinks coffee, denies any alcohol Review of system: Currently having no headache or visual symptoms no chest pain or shortness of breath Episode of dizziness Vital signs reviewed No neck vein distention noted Chest good air entry bilaterally, no wheezing or rales noted CVS regular heart sound, no murmur noted Abdomen soft, nontender. Extremities no pedal edema [employer] alert awake oriented -3, no functional neurological deficit Patient's labs reviewed EKG is nonspecific. Assessment and recommendation: 62-year-old male with history of high cholesterol and CAD now admitted with Acute dyspnea. Nonspecific. Patient also having abnormal echocardiogram, will get repeat echocardiogram with contrast study. Cardiology evaluation. No evidence of any aortic dissection as well as pulmonary embolism from the CT scan. Present on Admission Present on Admission - Present on Admission Any Indicators Present on Admission: No History of DVT/PE: No History of Uncontrolled Diabetes: No Urinary Catheter: No Decubitus Ulcer Present: No Past Patient History - Infectious Disease Hx of Infectious Diseases: None - Past Medical History & Family History Past Medical History?: Yes - Past Social History Smoking Status: Never Smoked - CARDIAC Hx Hypercholesterolemia: Yes Hx Hypertension: Yes - PULMONARY Hx Respiratory Disorders: No - NEUROLOGICAL Hx Neurological Disorder: Yes Hx Syncope: Yes Hx Vertigo: Yes - HEENT Hx HEENT Problems: Yes Other/Comment: wear glasses for blurred vision - RENAL Hx Chronic Kidney Disease: No - ENDOCRINE/METABOLIC Hx Endocrine Disorders: Yes Other/Comment: HYPOGLYCEMIA - HEMATOLOGICAL/ONCOLOGICAL Hx Blood Disorders: No - INTEGUMENTARY Hx Dermatological Problems: No - MUSCULOSKELETAL/RHEUMATOLOGICAL Hx Falls: No - GASTROINTESTINAL Hx Gastrointestinal Disorders: No - GENITOURINARY/GYNECOLOGICAL Hx Genitourinary Disorders: Yes Hx Prostate Problems: Yes - PSYCHIATRIC Hx Substance Use: No - SURGICAL HISTORY Hx Surgeries: Yes Hx Cardiac Catheterization: Yes ([id number] 2014) - ANESTHESIA Hx Anesthesia: Yes Hx Anesthesia Reactions: No Meds Allergies/Adverse Reactions: Allergies Allergy/AdvReac Type Severity Reaction Status Date / Time Penicillins Allergy Mild RASH Verified 10/15/17 18:01 Results - Vital Signs Recent Vital Signs: Last Vital Signs Temp 98.6 F 10/15/17 18:02 Pulse 60 10/15/17 21:34 Resp 13 10/15/17 21:34 BP 150/91 H 10/15/17 21:34 Pulse Ox 99 10/15/17 22:29 - Labs Result Diagrams: 10/15/17 20:11 10/15/17 20:11 Labs: Laboratory Results - last 24 hr 10/15/17 10/15/17 10/15/17 20:11 20:11 20:11 WBC 7.8 RBC 4.84 Hgb 15.0 Hct 43.6 MCV 90.0 MCH 31.0 MCHC 34.4 RDW 13.5 Plt Count 181 MPV 8.8 Neut % (Auto) 76.9 H Lymph % (Auto) 15.4 L [place] % (Auto) 6.6 Eos % (Auto) 0.5 Baso % (Auto) 0.6 Neut # (Auto) 6.0 Lymph # (Auto) 1.2 [place] # (Auto) 0.5 Eos # (Auto) 0.0 Baso # (Auto) 0.0 PT 12.0 INR 1.1 APTT 37 H D-Dimer, Quantitative 255 H Puncture Site pCO2 pO2 HCO3 ABG pH ABG Total CO2 ABG O2 Saturation ABG Base Excess Frank Test ABG Potassium A-a O2 Difference Respiratory Index Glucose Lactate Liter Flow FiO2 Sodium 143 Potassium 4.5 Chloride 104 Carbon Dioxide 29 Anion Gap 15 BUN 17 Creatinine 1.0 Est GFR ( Amer) > 60 Est GFR (Non-Af Amer) > 60 Random Glucose 104 Calcium 9.6 Total Bilirubin 1.2 AST 36 ALT 39 Alkaline Phosphatase 70 Troponin I < 0.0120 NT-Pro-B Natriuret Pep 118 Total Protein 7.2 Albumin 4.2 Globulin 3.0 Albumin/Globulin Ratio 1.4 Arterial Blood Potassium 10/15/17 20:25 WBC RBC Hgb Hct MCV MCH MCHC RDW Plt Count MPV Neut % (Auto) Lymph % (Auto) [place] % (Auto) Eos % (Auto) Baso % (Auto) Neut # (Auto) Lymph # (Auto) [place] # (Auto) Eos # (Auto) Baso # (Auto) PT INR APTT D-Dimer, Quantitative Puncture Site Lba pCO2 44 pO2 87 HCO3 26.5 ABG pH 7.40 ABG Total CO2 28.7 H ABG O2 Saturation 101.3 H ABG Base Excess 2.0 Frank Test Pos ABG Potassium 3.5 L A-a O2 Difference 8.0 Respiratory Index 0.1 Glucose 92 Lactate 0.5 L Liter Flow 0 FiO2 21.0 Sodium 142.0 Potassium Chloride 109.0 H Carbon Dioxide Anion Gap BUN Creatinine Est GFR ( Amer) Est GFR (Non-Af Amer) Random Glucose Calcium Total Bilirubin AST ALT Alkaline Phosphatase Troponin I NT-Pro-B Natriuret Pep Total Protein Albumin Globulin Albumin/Globulin Ratio Arterial Blood Potassium 3.5 L
[2017-10-16 02:25] VITALS: RESP 20
[2017-10-16 05:08] LABS: URINE BILIRUBIN NEGATIVE (NEGATIVE); URINE BLOOD NEGATIVE (NEGATIVE); URINE CLARITY Clear (Clear); URINE COLOR Straw (YELLOW); URINE GLUCOSE (UA) NORMAL (Normal); URINE LEUKOCYTE ESTERASE NEG Leu/uL (Negative); URINE PROTEIN NEGATIVE (NEGATIVE); URINE UROBILINOGEN NORMAL mg/dL (0.2-1.0)
[2017-10-16] MEDS ORDERED: Perflutren Lipid Microsphere 1.5 ML SUS IV ONE (07:58)
[2017-10-16 08:56] VITALS: PULSE 59
[2017-10-16 08:57] VITALS: TEMP 97.9; O2SAT 96
[2017-10-16 11:16] VITALS: BP 145/99
--- NOTE | 2017-10-16 14:28 | CP.PCM.DIS ---
Provider - Provider Date of Admission: 10/15/17 21:16 Attending physician: Suri Asencio MD Time Spent in preparation of Discharge (in minutes): 45 Hospital Course - Lab Results Lab Results: Most Recent Lab Values WBC 7.8 K/uL (4.8-10.8) 10/15/17 20:11 RBC 4.84 Mil/uL (4.40-5.90) 10/15/17 20:11 Hgb 15.0 g/dL (12.0-18.0) 10/15/17 20:11 Hct 43.6 % (35.0-51.0) 10/15/17 20:11 MCV 90.0 fL (80.0-94.0) 10/15/17 20:11 MCH 31.0 pg (27.0-31.0) 10/15/17 20:11 MCHC 34.4 g/dL (33.0-37.0) 10/15/17 20:11 RDW 13.5 % (11.5-14.5) 10/15/17 20:11 Plt Count 181 K/uL (130-400) 10/15/17 20:11 MPV 8.8 fL (7.2-11.7) 10/15/17 20:11 Neut % (Auto) 76.9 % (50.0-75.0) H 10/15/17 20:11 Lymph % (Auto) 15.4 % (20.0-40.0) L 10/15/17 20:11 [place] % (Auto) 6.6 % (0.0-10.0) 10/15/17 20:11 Eos % (Auto) 0.5 % (0.0-4.0) 10/15/17 20:11 Baso % (Auto) 0.6 % (0.0-2.0) 10/15/17 20:11 Neut # (Auto) 6.0 K/uL (1.8-7.0) 10/15/17 20:11 Lymph # (Auto) 1.2 K/uL (1.0-4.3) 10/15/17 20:11 [place] # (Auto) 0.5 K/uL (0.0-0.8) 10/15/17 20:11 Eos # (Auto) 0.0 K/uL (0.0-0.7) 10/15/17 20:11 Baso # (Auto) 0.0 K/uL (0.0-0.2) 10/15/17 20:11 PT 12.0 SECONDS (9.7-12.2) 10/15/17 20:11 INR 1.1 10/15/17 20:11 APTT 37 SECONDS (21-34) H 10/15/17 20:11 D-Dimer, Quantitative 255 ng/mlDDU (0-243) H 10/15/17 20:11 Puncture Site Lba 10/15/17 20:25 pCO2 44 mm/Hg (35-45) 10/15/17 20:25 pO2 87 mm/Hg (80-100) 10/15/17 20:25 HCO3 26.5 mmol/L (21-28) 10/15/17 20:25 ABG pH 7.40 (7.35-7.45) 10/15/17 20:25 ABG Total CO2 28.7 mmol/L (22-28) H 10/15/17 20:25 ABG O2 Saturation 101.3 % (95-98) H 10/15/17 20:25 ABG Base Excess 2.0 mmol/L (-2.0-3.0) 10/15/17 20:25 Frank Test Pos 10/15/17 20:25 ABG Potassium 3.5 mmol/L (3.6-5.2) L 10/15/17 20:25 A-a O2 Difference 8.0 mm/Hg 10/15/17 20:25 Respiratory Index 0.1 10/15/17 20:25 Sodium 142.0 mmol/l (132-148) 10/15/17 20: Chloride 109.0 mmol/L (98-107) H 10/15/17 20:25 Glucose 92 mg/dl (75-110) 10/15/17 20:25 Lactate 0.5 mmol/L (0.7-2.1) L 10/15/17 20:25 Liter Flow 0 10/15/17 20:25 FiO2 21.0 % 10/15/17 20:25 Sodium 143 mmol/L (132-148) 10/15/17 20:11 Potassium 4.5 mmol/L (3.6-5.2) 10/15/17 20:11 Chloride 104 mmol/L (98-107) 10/15/17 20:11 Carbon Dioxide 29 mmol/L (22-30) 10/15/17 20:11 Anion Gap 15 (10-20) 10/15/17 20:11 BUN 17 mg/dL (9-20) 10/15/17 20:11 Creatinine 1.0 mg/dL (0.8-1.5) 10/15/17 20:11 Est GFR ( Amer) > 60 10/15/17 20:11 Est GFR (Non-Af Amer) > 60 10/15/17 20:11 Random Glucose 104 mg/dL (75-110) 10/15/17 20:11 Calcium 9.6 mg/dl (8.6-10.4) 10/15/17 20:11 Total Bilirubin 1.2 mg/dL (0.2-1.3) 10/15/17 20:11 AST 36 U/L (17-59) 10/15/17 20:11 ALT 39 U/L (21-72) 10/15/17 20:11 Alkaline Phosphatase 70 U/L (38-126) 10/15/17 20:11 Troponin I < 0.0120 ng/mL (0.00-0.120) 10/15/17 20:11 NT-Pro-B Natriuret Pep 118 pg/mL (0-900) 10/15/17 20:11 Total Protein 7.2 g/dL (6.3-8.3) 10/15/17 20:11 Albumin 4.2 g/dL (3.5-5.0) 10/15/17 20:11 Globulin 3.0 gm/dL (2.2-3.9) 10/15/17 20:11 Albumin/Globulin Ratio 1.4 (1.0-2.1) 10/15/17 20:11 Arterial Blood Potassium 3.5 mmol/L (3.6-5.2) L 10/15/17 20:25 Urine Color Straw (YELLOW) 10/16/17 05:00 Urine Clarity Clear (Clear) 10/16/17 05:00 Urine pH 7.0 (5.0-8.0) 10/16/17 05:00 Ur Specific [place] 1.026 (1.003-1.030) 10/16/17 05:00 Urine Protein Negative mg/dL (NEGATIVE) 10/16/17 05:00 Urine Glucose (UA) Normal mg/dL (Normal) 10/16/17 05:00 Urine Ketones Negative mg/dL (NEGATIVE) 10/16/17 05:00 Urine Blood Negative (NEGATIVE) 10/16/17 05:00 Urine Nitrate Negative (NEGATIVE) 10/16/17 05:00 Urine Bilirubin Negative (NEGATIVE) 10/16/17 05:00 Urine Urobilinogen Normal mg/dL (0.2-1.0) 10/16/17 05:00 Ur Leukocyte Esterase Neg [place]/uL (Negative) 10/16/17 05:00 - Hospital Course Hospital Course: CC: Shortness of breath History of present illness: 62-year-old male with a history of high cholesterol, CAD, status post multiple stenting and aspirin, beta cain and antiplatelets was taken to the emergency room As the patient was having increasing shortness of breath. Earlier today patient underwent echocardiogram. In the echo there was some concern about intra-or ventricular thrombus. I called the patient. And I advised the patient to have a repeat echocardiogram with contrast study. But the patient started having increasing anxiety symptoms, and also started having shortness of breath, came to the emergency room. At the time patient underwent extensive workup in the ER. In further management as an inpatient. Past medical history: High cholesterol, CAD, status post a stent. Allergy: Allergic to penicillin Surgical history: Patient had a cardiac stent, following a cardiac arrest in 2014. Family history: Father at age of 49 with a liver cancer. Mother at age of 69 had heart disease. Social history: Nonsmoker, drinks coffee, denies any alcohol Review of system: Currently having no headache or visual symptoms no chest pain or shortness of breath Episode of dizziness Vital signs reviewed No neck vein distention noted Chest good air entry bilaterally, no wheezing or rales noted CVS regular heart sound, no murmur noted Abdomen soft, nontender. Extremities no pedal edema [employer] alert awake oriented -3, no functional neurological deficit Patient's labs reviewed EKG is nonspecific. Assessment and recommendation: 62-year-old male with history of high cholesterol and CAD now admitted with Acute dyspnea. Nonspecific. Patient also having abnormal echocardiogram, will get repeat echocardiogram with contrast study. Cardiology evaluation. No evidence of any aortic dissection as well as pulmonary embolism from the CT scan. Cardiology evaluation was called. Patient underwent echocardiogram with a contrasted study. Negative study. Clinically stable. Patient will be discharged home. He will follow-up as an outpatient. Medications reviewed Final diagnoses: Nonspecific shortness of breath. CAD, high cholesterol, cardiac stent Discharge Plan - Follow Up Plan Condition: FAIR Disposition: HOME/ ROUTINE Instructions: Chest Pain, Syncope (Fainting) (DC), Palpitations (DC) Additional Instructions: Follow up after 3mos With Dr Juni Medel. Referrals: Olaf Alfredo MD [Staff Provider] -
--- NOTE | 2017-10-17 02:15 | CARD ---
APPROVED REPORT EKG Measurement Heart [id number] <Conclusion> Sinus bradycardia Incomplete right bundle branch block Borderline ECG
--- NOTE | 2017-10-17 16:01 | CARD ---
APPROVED REPORT EXAM: LIMITED Two-dimensional echocardiogram with contrast. Other Information Quality : LimitedRhythm : INDICATION Thrombus Echo Enhancing Agent Indication: Rule out thrombus Agent/Amount Used: Definity <Conclusion> Normal LV systolic function. No LV thrombus seen.
== END 2017-10-16 14:48 | disposition home or self-care (01) ==
LOC: C.ER 17:25 → C.9E 21:16 → C.6T 22:01
PROVIDERS: ADMIT Internal Medicine; ATTEND Internal Medicine
DX: R07.9 Chest pain, unspecified (principal); R55 Syncope and collapse; E16.2 Hypoglycemia, unspecified; E78.00 Pure hypercholesterolemia, unspecified; I10 Essential (primary) hypertension
CPT/HCPCS: 71275; 80053; 81001; 82803; 83880; 84484; 85025; 85378; 85610; 85730; 93005; 96374; 99285; G0378; J1200; J2930; Q9967